=== PATIENT | male | born 1945 | race Caucasian/White ===

== ENCOUNTER 2018-05-31 08:55 | Emergency (ER) | payer OTHER ==
[2018-05-31] MEDS: KETOROLAC 15 MG INJ IM (09:55)
== END 2018-05-31 11:29 | disposition home or self-care (01) ==
LOC: FTE 08:55
DX: M54.42 Lumbago with sciatica, left side (principal); I10 Essential (primary) hypertension
CPT/HCPCS: 74176; 96372; 99285-25